=== PATIENT | male | born 1985 | race Caucasian/White ===

== ENCOUNTER 2021-07-05 20:11 | Emergency (ER) | payer BC ==
--- NOTE | 2021-07-05 20:25 | ED Physician Documentation ---
PD HPI HEAD INJURY - Stated complaint Stated Complaint: HEAD INJ - Chief complaint Chief Complaint: Laceration - History obtained from History obtained from: Patient - History of Present Illness Mechanism of head injury: Blow (he was rolling with another person in [facility] and was struck accidentally in eyebrow area with elbow, causing small laceration. Unsure if needed sutures. No LOC.) Timing - onset: How many hours ago (1), Today Location of injury: Front (right lateral eyebrow) Associated symptoms: No: LOC, AMS Similar symptoms before: Has not had sx before Review of Systems Eyes: denies: Loss of vision, Decreased vision Neurologic: denies: Focal weakness, Numbness, Altered mental status PD PAST MEDICAL HISTORY - Past Medical History Past Medical History: No Neuro: None - Past Surgical History Past Surgical History: No - Present Medications Home Medications: Ambulatory Orders Medication Instructions Recorded Confirmed No Known Home Medications 07/05/21 07/05/21 - Allergies Allergies/Adverse Reactions: Allergies Allergy/AdvReac Type Severity Reaction Status Date / Time No Known Drug Allergies Allergy Verified 07/05/21 20:15 - Social History Does the pt smoke?: No Smoking Status: Never smoker Does the pt drink ETOH?: No Does the pt have substance abuse?: No - Immunizations Immunizations are current?: Yes PD ED PE NORMAL - Vitals Vital signs reviewed: Yes - General General: Alert and oriented X 3, No acute distress, Well developed/nourished - HEENT HEENT: PERRL, EOMI, Other (right lateral eyebrow area with 1 cm lac with edges close together, no FB nor bleeding. Does not need sutures. Closed with steristrips and Dermabond. ) Results - Vitals Vitals: Vital Signs - 24 hr 07/05/21 07/05/21 07/05/21 20:15 20:23 20:46 Temperature 36.8 C 36.8 C 36.8 C Heart Rate 77 77 72 Respiratory 16 16 16 Rate Blood Pressure 155/80 H 155/80 H 140/78 H O2 Saturation 97 97 98 Oxygen O2 Source Room air Procedures - Laceration (location) right lateral eyebrow Length in cm: 1 Wound type: Linear, Into subcut fat, Clean Skin layer closure: Dermabond, Steri strips PD MEDICAL DECISION MAKING - ED course Complexity details: considered differential, d/w patient Departure - Departure Disposition: 01 Home, Self Care Clinical Impression: Eyebrow laceration Qualifiers: Encounter type: initial encounter Laterality: right Qualified Code(s): S01.111A - Laceration without foreign body of right eyelid and periocular area, initial encounter Condition: Stable Record reviewed to determine appropriate education?: Yes Instructions: ED Laceration Facial Skin Glue Comments: Leave the area clean and dry and allow the Steri-Strips and glue to fall off on their own over 4 to 5 days. At that point you should be able to assume normal wound care with cleaning gently soap and water, a little ointment and Band-Aid. Tylenol or ibuprofen if needed for mild pains. Return if infection. Discharge Date/Time: 07/05/21 20:57
[2021-07-05 20:57] VITALS: BP 140/78
== END 2021-07-05 20:57 | disposition home or self-care (01) ==
LOC: ED 20:11
DX: S01.111A Laceration without foreign body of right eyelid and periocular area, initial encounter (principal); W50.0XXA Accidental hit or strike by another person, initial encounter; Y93.75 Activity, martial arts
CPT/HCPCS: 12011; 99282

== ENCOUNTER 2023-02-22 11:38 | Outpatient (CLI) | payer OTHER ==
--- NOTE | 2023-02-22 13:56 | XRAY Report ---
PROCEDURE: Knee 2 View LT INDICATIONS: PAIN IN LT KNEE TECHNIQUE: 2 views of the left knee(s) were acquired. COMPARISON: None. FINDINGS: Bones: No fractures or dislocations. No suspicious bony lesions. Soft tissues: No knee joint effusion. No suspicious soft tissue calcifications. IMPRESSION: No acute bony abnormality. If there remains a high clinical concern for fracture, consider cross-sect ional imaging now. If pain persists, consider repeat x-ray in 10-14 days or cross-sectional imaging. Reviewed by: Omar Brennan MD on 02/22/2023 1:55 PM PDT Approved by: Omar Brennan MD on 02/22/2023 1:55 PM PDT Station ID: [id number]
== END 2023-02-22 11:39 | disposition home or self-care (01) ==
LOC: DI 11:38
PROVIDERS: ATTEND Physician Assistant
DX: M25.562 Pain in left knee (principal)

== ENCOUNTER 2024-03-26 17:50 | Emergency (ER) | payer OTHER ==
[2024-03-26 17:59] VITALS: BP 142/82; O2SAT 99
--- NOTE | 2024-03-26 18:39 | XRAY Report ---
PROCEDURE: Ankle 3+V LT INDICATIONS: swelling/pain TECHNIQUE: 3 views of the ankle were acquired. COMPARISON: None. FINDINGS: Bones: No fractures or dislocations. Ankle mortise is normally aligned. No suspicious bony lesions . Soft tissues: No tibiotalar joint effusion. Achilles tendon appears normal. IMPRESSION: No acute bony abnormality. Reviewed by: Dusty Leyva MD on 03/26/2024 6:38 PM PDT Approved by: Dusty Leyva MD on 03/26/2024 6:38 PM PDT Station ID: [id number]
--- NOTE | 2024-03-26 19:08 | ED Physician Documentation ---
PD HPI LOWER EXT INJURY - Stated complaint Stated Complaint: L LEG PX - Chief complaint Chief Complaint: Trauma Ext - History obtained from History obtained from: Patient - Additional information Additional information: Patient is a 38-year-old male without any Significant past medical history presenting for evaluation of pain and swelling to the inner left ankle which was then present for several days. 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 He did recently take a trip to [place] via plane. It denies a personal history of DVT but his father did have 1. No chest pain, shortness of air, fever. Patient was seen at the walk-in clinic and directed to the ER for evaluation of a DVT. Review of Systems Musculoskeletal: reports: Extremity pain PD PAST MEDICAL HISTORY - Past Medical History Past Medical History: No Neuro: None - Past Surgical History Past Surgical History: No - Present Medications Home Medications: Ambulatory Orders Medication Instructions Recorded Confirmed No Known Home Medications 07/05/21 03/26/24 - Allergies Allergies/Adverse Reactions: Allergies Allergy/AdvReac Type Severity Reaction Status Date / Time No Known Drug Allergies Allergy Verified 03/26/24 17:56 - Social History Does the pt smoke?: No Smoking Status: Never smoker Does the pt drink ETOH?: No Does the pt have substance abuse?: No - Immunizations Immunizations are current?: Yes PD ED PE NORMAL - General General: Alert and oriented X 3, No acute distress, Well developed/nourished - HEENT HEENT: Atraumatic - Neck Neck: Supple, no meningeal sign - Cardiac Cardiac: RRR, Strong equal pulses - Respiratory Respiratory: No respiratory distress, Clear bilaterally - Derm Derm: Warm and dry - Extremities Extremities: Other (Mild tenderness and swelling to medial left ankle, normal range of motion of ankle, no calf tenderness or swelling, distal pulses intact) Results - Vitals Vitals: Vital Signs - 24 hr 03/26/24 17:52 Temperature 36.6 C Heart Rate 54 L Respiratory 18 Rate Blood Pressure 142/82 H O2 Saturation 99 Oxygen O2 Source Room air PD Medical Decision Making - ED course Complexity details: reviewed results, d/w patient ED course: Patient presenting for evaluation of discomfort and swelling to inner distal left lower leg In the region of the ankle. The ankle was obtained which I reviewed I see no fracture or dislocation. Neurovascularly intact. No calf swelling. Normal range of motion at the knee. An ultrasound was obtained which is negative for DVT but does show superficial thrombophlebitis and a distal left calf vein. Per technical assoc this measures approximately 3 mm and is distal to the small saphenous vein.Based on current recommendations, patient would not need anticoagulation given the small size as well is that it is in a distal superficial vein. I reviewed findings with the patient as well as treatment recommendations including NSAIDs, ice, compression and follow-up ultrasound in 7 to 10 days. Patient understands importance of close follow-up and is advised on concerning symptoms to return for. Departure - Departure Disposition: 01 Home, Self Care Clinical Impression: Superficial vein thrombosis Condition: Stable Instructions: ED Phlebitis Superficial Follow-Up: [facility] [place] [Provider Group] [facility] [place] [Provider Group] Comments: Your ankle x-ray does not show any abnormalities. The ultrasound of your leg does not show a blood clot in the deep veins but there is a small 3 mm clot in a superficial vein around your ankle. Because this is not a large clots and is not in the upper leg we do not need to start you on a blood thinner at this time. I would recommend using ice, compression like an Hong wrap, elevation, NSAIDs such as ibuprofen or naproxen to help with any pain or discomfort. You also need to have a repeat ultrasound of your leg in 7 to 10 days. This is to monitor the clot and make sure that it has not moved or spread to an area where we would consider the use of a blood thinner. I would also recommend follow-up with your primary care doctor to discuss whether you should have testing for any Genetic factors that may make you more prone to developing blood clots. Return to the emergency department if you develop any worsening symptoms such as increased pain or swelling Forms: PCP List Discharge Date/Time: 03/26/24 19:25
--- NOTE | 2024-03-26 20:12 | Ultrasound Report ---
PROCEDURE: Duplex Ext Veins Left INDICATIONS: calf pain/swelling TECHNIQUE: Real-time imaging, as well as color and pulse Doppler interrogation, were performed of the lower extr emity deep veins from the inguinal ligament to the popliteal fossa. Attempted visualization of the ca lf veins was performed. COMPARISON: None. FINDINGS: The deep veins are normally compressible, and free of intraluminal thrombus. Color and pu lse Doppler demonstrate normal phasic intraluminal flow. There is normal augmentation response to di stal compression maneuver. There is superficial thrombus in the distal calf in the region of pain. IMPRESSION: 1. No left lower extremity DVT. 2. Superficial thrombophlebitis at the distal left calf vein in the region of pain. Reviewed by: Dusty Leyva MD on 03/26/2024 8:10 PM PDT Approved by: Dusty Leyva MD on 03/26/2024 8:10 PM PDT Station ID: [id number]
== END 2024-03-26 19:25 | disposition home or self-care (01) ==
LOC: ED 17:50
DX: I82.812 Embolism and thrombosis of superficial veins of left lower extremity (principal)
CPT/HCPCS: 99283; 99284

== ENCOUNTER 2024-04-03 20:04 | Outpatient (CLI) | payer OTHER ==
--- NOTE | 2024-04-03 23:11 | Ultrasound Report ---
PROCEDURE: Duplex Ext Veins Left INDICATIONS: SUPERFICIAL THROMBOPHLEBITIS TECHNIQUE: Real-time imaging, as well as color and pulse Doppler interrogation, were performed of the lower extr emity deep veins from the inguinal ligament to the popliteal fossa. Attempted visualization of the ca lf veins was performed. COMPARISON: DVT ultrasound 03/26/2024. FINDINGS: The deep veins are normally compressible, and free of intraluminal thrombus. Color and pu lse Doppler demonstrate normal phasic intraluminal flow. There is normal augmentation response to di stal compression maneuver. Superficial venous thrombus is again seen at the left posterior medial calf as demonstrated on the ex am from 03/26/2024. IMPRESSION: 1.No deep venous thrombosis of the visualized lower extremity. 2.Superficial thrombophlebitis again seen in the left calf. Reviewed by: Omar Merchant MD on 04/03/2024 11:10 PM PDT Approved by: Omar Merchant MD on 04/03/2024 11:10 PM PDT Station ID: [id number]
== END 2024-04-03 20:05 | disposition home or self-care (01) ==
LOC: DI 20:04
PROVIDERS: ATTEND Physician Assistant
DX: I80.252 Phlebitis and thrombophlebitis of left calf muscular vein (principal)